=== PATIENT | female | born 1980 ===

== ENCOUNTER 2019-01-29 05:23 | Day surgery (SDC) | payer OTHER ==
[~2019-01-29 05:23] MED LIST: CLONAZEPAM0.5 MG; METFORMIN HCL500 MG PO; SYNTHROID100 MCG; TRAZODONE HCL100 MG; WELLBUTRIN SR150 MG; WELLBUTRIN XL150 M1 PO; ZESTRIL2.5 MG
== END 2019-01-29 19:00 | disposition home or self-care (01) ==
LOC: CIR.AMB 05:23
DX: C50.311 Malignant neoplasm of lower-inner quadrant of right female breast (principal)